=== PATIENT | female | born 1980 | race Caucasian/White ===

== ENCOUNTER 2024-09-12 07:12 | Day surgery (SDC) | payer BC ==
[2024-09-12] MEDS: SOD FERRIC GLUC COMPLX/SUCROSE 125 MG in NA CHLORIDE 0.9% 100 ML IV SCH (07:53)
[2024-09-12 09:53] VITALS: BP 134/64; TEMP 98.4; O2SAT 100; BMI 19.0
== END 2024-09-12 08:55 | disposition home or self-care (01) ==
LOC: DS 07:12 → EDSTATUS 07:30 → DS 08:55
PROVIDERS: ATTEND Obstetrics & Gynecology
DX: D50.0 Iron deficiency anemia secondary to blood loss (chronic) (principal)
CPT/HCPCS: 96365; J2916

== ENCOUNTER 2024-10-09 10:27 | Day surgery (SDC) | payer BC ==
[2024-10-09] MEDS: SOD FERRIC GLUC COMPLX/SUCROSE 125 MG in NA CHLORIDE 0.9% 100 ML IV ONE (10:55)
[2024-10-09 11:08] VITALS: BP 120/69; TEMP 97.9; O2SAT 100
[2024-10-09 11:14] VITALS: BMI 19.0
[2024-10-09 12:32] LABS: Absolute Lymphocytes (CBC) 2.2 K/uL (0.7-4.9); Absolute Monocytes 0.5 K/uL (0.1-1.3); Absolute Neutrophil 6.3 K/uL (1.8-8.0); Basophils % 0.4 % (0-1.3); Eosinophils % 0.5 % (0-4.4); Hematocrit 36.5 % (36.0-45.0); Hemoglobin 12.1 g/dL (12.0-15.0); Lymphocytes % 23.9 % (15.3-44.8); MCH 29.1 pg (27.0-35.0); MCHC 33.2 g/dL (32.0-36.0); MCV 87.6 fL (80-100); MPV 8.6 fL (7.6-11.3); Monocytes % 5.2 % (3.3-12.3); Platelets 290 thou/uL (152-406); RBC Red Blood Cell Count 4.16 M/uL (3.86-4.86); Red Cell Distribution Width 14.9 % (12.1-15.2)
== END 2024-10-09 12:15 | disposition home or self-care (01) ==
LOC: DS 10:27
PROVIDERS: ATTEND Obstetrics & Gynecology
DX: D50.0 Iron deficiency anemia secondary to blood loss (chronic) (principal)
CPT/HCPCS: 85025; 36415; 83540; 96365; J2916